=== PATIENT | male | born 1965 | race Native Hawaiian/Other Pacific Islander ===

== ENCOUNTER 2021-07-04 11:52 | Emergency (ER) | payer OTHER ==
[~2021-07-04] VITALS: Ht 177.8 cm; Wt 72.6 kg
[2021-07-04 11:52] VITALS: TEMP 98
[2021-07-04 13:02] LABS: PLATELET COUNT 310 K/uL (142-355)
[2021-07-04 13:03] LABS: POTASSIUM 4.2 mmol/L (3.6-5.2)
[2021-07-04 15:43] VITALS: BP 128/81
== END 2021-07-04 15:44 | disposition home or self-care (01) ==
LOC: ED 11:52
PROVIDERS: Emergency Medicine
DX: S40.011A Contusion of right shoulder, initial encounter (principal); F10.129 Alcohol abuse with intoxication, unspecified; Y90.8 Blood alcohol level of 240 mg/100 ml or more; V49.9XXA Car occupant (driver) (passenger) injured in unspecified traffic accident, initial encounter; Y92.89 Other specified places as the place of occurrence of the external cause
CPT/HCPCS: 80053; 80307; 80320; 85027; 96374; 99284; J1885

== ENCOUNTER 2021-12-26 12:09 | Outpatient (CLI) | payer OTHER | END 2021-12-26 18:58 | disposition home or self-care (01) | LOC: CT 12:09 | PROVIDERS: ATTEND Nurse Practitioner Family | DX: R10.32 Left lower quadrant pain (principal); R19.7 Diarrhea, unspecified | CPT/HCPCS: 36415; 82565; 84520; Q9963 ==